=== PATIENT | male | born 1990 | race Hispanic/Latino ===

== ENCOUNTER 2020-05-07 17:06 | Emergency (ER) | payer OTHER ==
[~2020-05-07] VITALS: Ht 167.6 cm; Wt 88.5 kg
--- NOTE | 2020-05-07 18:42 | Diagnostic Imaging Report ---
Exam: Head and maxillofacial CTs without IV contrast History: Trauma, fall Comparison studies: None Technique: Axial images were obtained to the vertex and maxillofacial region. Coronal and sagittal images reconstructed from the axial data. Dose modulation, iterative reconstruction, and/or weight based adjustment of the mA/kV was utilized to reduce the radiation dose to as low as reasonably achievable. Intravenous contrast: None Findings: Scalp: No abnormalities. Bones: No fractures, blastic or lytic lesions. Brain sulci: Appropriate for age. Ventricles: Normal in size and configuration. No hydrocephalus. Parenchyma: Normal no densities. No masses, hemorrhage, acute or chronic vascular insults. Sellar/suprasellar region: No abnormalities Craniocervical junction: Patent foramen magnum. No Chiari one malformation. Maxillofacial CT: Soft tissues: No abnormalities. Bones: Chronically depressed or dehiscent left lamina appreciable fracture. No other fractures. Orbits: Mild focal herniation of extraocular fat through the dehiscent left lamina appreciably the left ethmoid sinus. No extraocular muscle herniation. Globe and lens are intact. No retrobulbar hematoma or hyperdense foreign body. Paranasal sinuses: Clear Sinonasal cavity: No mass. Leftward nasal septal deviation with leftward projecting osseous spur which abuts the left inferior turbinate. Middle ear mastoid cavities: Clear. IMPRESSION: Head CT: No abnormalities. Maxillofacial CT: 1. Chronically fractured/dehiscent left lamina papyracea. 2. No other maxillofacial fractures or other acute abnormalities. Signed by: Dr. Osmar Navarro M.D. on 05/07/2020 6:39 PM
--- NOTE | 2020-05-07 18:48 | Diagnostic Imaging Report ---
Exam: Cervical spine CT without IV contrast History: Trauma, fall Comparison studies: None Technique: Axial images were obtained through the cervical region. Coronal and sagittal images reconstructed from the axial data. Dose modulation, iterative reconstruction, and/or weight based adjustment of the mA/kV was utilized to reduce the radiation dose to as low as reasonably achievable. Intravenous contrast: None Findings: Atlantoaxial articulation: Intact. Alignment: Mild reversal the usual cervical lordosis may be accentuated by patient position or possibly related to muscle spasm. No subluxation. Cervicomedullary junction: No abnormalities. The foramen magnum is patent. Soft tissues: No gross acute abnormalities. Vertebrae: No fractures, infection or neoplasm. Degenerative changes: Mildly degenerated C3-C4 disc with small anterior annular calcification. Disc height is otherwise maintained. Patent canal and foramina. IMPRESSION: 1. No cervical spine fracture or subluxation. 2. Ligament, spinal cord and or vascular abnormalities cannot be excluded on the basis of this examination Signed by: Dr. Osmar Navarro M.D. on 05/07/2020 6:44 PM
--- NOTE | 2020-05-07 19:03 | Emergency Department Note ---
History of Present Illnes History of Present Illness Chief Complaint: Head/Face Trauma History of Present Illness This is a 29 year old male .thursday on swing at [employer] and fell face first hitting face on bottom. dizzy. did not pass out. pt states headache. lacs/abrasions noted to face. healing well. aaox4. ambulatory. c/o increase swelling to face today after waking up Historian: Patient Arrival Mode: Car Onset (how long ago): day(s) (3 days) Location: face Quality: mild Radiation: non-radiation, back, neck, extremity, abdomen, periumbilical, flank, proximal, distal, other Severity: mild Onset quality: sudden Duration (how long): day(s) (3 day) Progression: unchanged Context: recent illness, recent surgery, recent immobilization, recent travel, trauma/injury, new medications, hx of DVT/PE, non-compliance w/ medications, other Relieving factors: none Exacerbating factors: none Treatments prior to arrival: none Past Medical/Family History Physician Review I have reviewed the patient's past medical and family history. Any updates have been documented here. Past Medical History Recent Fever: No Clinical Suspicion of Infectio: No New/Unexplained Change in Ment: No Past Medical History: None Past Surgical History: None Social History Smoking Cessation: Never Smoker Alcohol Use: None Any Illegal Drug Use: No TB Exposure/Symptoms: No Physically hurt or threatened: No Family History Family history of heart diseas: No Other Last Tetanus: unknown Any Pre-Existing Lines (PICC,: No Review of Systems Review of Systems Constitutional: no symptoms EENTM: no symptoms; eye pain, blurred vision Cardiovascular: no symptoms Respiratory: no symptoms Gastrointestinal: no symptoms Genitourinary: no symptoms Musculoskeletal: other (This is a 29 year old male .thursday on swing [place] [employer] and fell face first hitting face on bottom. dizzy. did); neck pain Neurological: headache Psychological: no symptoms Endocrine: no symptoms Hematological/Lymphatic: no symptoms Review of other systems All other systems reviewed and negative. Physical Exam Related Data Allergies: Coded Allergies: No Known Allergies (Unverified , 05/07/20) Triage Vital Signs Vital Signs Date Time Temp Pulse Resp B/P (MAP) Pulse Ox O2 Delivery O2 Flow Rate FiO2 05/07/20 17:25 97.3 85 16 155/95 99 Vital signs reviewed: Yes Physical Exam CONSTITUTIONAL Constitutional: well-developed, well-nourished HENT HENT: normocephalic, oropharynx normal, pharynx abnormal; atraumatic (noted abrasions to forehead nose chin healing well / noted swelling to bilat cheeks and forehead ) HENT L/R: left ext ear normal, right ext ear normal EYES Eyes: PERRL, conjunctivae normal NECK Neck: ROM normal PULMONARY Pulmonary: effort normal, breath sounds normal CARDIOVASCULAR Cardiovascular: regular rhythm, heart sounds normal, capillary refill normal, normal rate GASTROINTESTINAL Abdominal: soft, nontender, bowel sounds normal GENITOURINARY Genitourinary: exam deferred SKIN Skin: warm, dry MUSCULOSKELETAL Musculoskeletal: ROM normal NEUROLOGICAL Neurological: alert, oriented x 3, no gross motor or sensory deficits PSYCHOLOGICAL Psychological: mood/affect normal, judgement normal Exam - additional comments This is a 29 year old male .thursday on swing [place] [employer] and fell face first hitting face on bottom. dizzy. did not pass out. pt states headache. lacs/abrasions noted to face. healing well. aaox4. ambulatory. c/o increase swelling to face today after waking up Results Imaging Impressions IMPRESSION: Head CT: No abnormalities. Maxillofacial CT: 1. Chronically fractured/dehiscent left lamina papyracea. 2. No other maxillofacial fractures or other acute abnormalities. Signed by: Dr. Osmar Herrmann M.D. on 05/07/2020 6:39 PM Dictated By: OSMAR HERRMANN MD 38 Transcribed By: RICKY on 05/07/201838 IMPRESSION: 1. No cervical spine fracture or subluxation. 2. Ligament, spinal cord and or vascular abnormalities cannot be excluded on the basis of this examination Critical Care Time Subsequent provider I assumed direction of critical care for this patient from another provider of my specialty. Assessment & Plan Reassessment Reassessment This is a 29 year old male .thursday on swing [place] [employer] and fell face first hitting face on bottom. dizzy. did not pass out. pt states headache. lacs/abrasions noted to face. healing well.aaox4. ambulatory. c/o increase swelling to face today after waking up - ct cervical head face ordered Assessment & Plan Final Impression: (1) Head injury (2) Facial contusion (3) Facial abrasion Assessment & Plan discussed ct results plan of care head injury instructions and f/u instructions 1. tylenol and motrin 2. return to ed as needed 3. follow up with your doctor / neurologist in 1-2 days without fail 4. rx ultram Depart Disposition: HOME, SELF-CARE Last Vital Signs Date Time Temp Pulse Resp B/P (MAP) Pulse Ox O2 Delivery O2 Flow Rate FiO2 05/07/20 17:25 97.3 85 16 155/95 99 JH ABDALLA May 07, 2020 19:03
[2020-05-07 19:18] VITALS: BP 136/97
== END 2020-05-07 19:56 | disposition home or self-care (01) ==
LOC: ER 17:06
DX: S00.83XA Contusion of other part of head, initial encounter (principal); S00.81XA Abrasion of other part of head, initial encounter; W17.89XA Other fall from one level to another, initial encounter; Y93.11 Activity, swimming; Y92.828 Other wilderness area as the place of occurrence of the external cause; R51 Headache; F17.210 Nicotine dependence, cigarettes, uncomplicated
CPT/HCPCS: 70450; 70486; 72125; 99283